=== PATIENT | female | born 1950 | race Caucasian/White ===

== ENCOUNTER 2023-08-16 12:48 | Emergency (ER) | payer OTHER ==
[2023-08-16 13:18] VITALS: BP 149/89; PULSE 97; RESP 18; TEMP 97.9; BMI 26.6
[2023-08-16] MEDS ORDERED: ACETAMINOPHEN 1000 MG/100 ML BAG IVPB ONE (13:40)
[2023-08-16] MEDS ORDERED: ACETAMINOPHEN INJECTION 100 ML IVPB ONE (13:44)
[2023-08-16 14:30] LABS: BASO % 1.1 % (0-2.0); EOS % 3.5 % (0-4.5); HEMATOCRIT 41.2 % (32.4-45.2); HEMOGLOBIN 13.2 GM/dL (10.7-15.3); LYMPH % 39.2 % (8-40); MCH 30.3 pg (25.7-33.7); MCHC 31.9 g/dl (32.0-36.0); MEAN PLT VOLUME 8.3 fl (7.5-11.1); MONO % 6.8 % (3.8-10.2); NEUT % 49.4 % (42.8-82.8); PLATELET COUNT 353 10^3/uL (134-434); RBC 4.34 M/mm3 (3.60-5.2); RDW 13.6 % (11.6-15.6); WHITE BLOOD COUNT 8.2 K/mm3 (4.0-10.0)
[2023-08-16 14:48] LABS: POTASSIUM 4.6 mmol/L (3.5-5.1)
[2023-08-16 14:50] LABS: BLOOD UREA NITROGEN 23.2 mg/dL (7-18); CALCIUM 9.6 mg/dL (8.5-10.1)
[2023-08-16 14:51] LABS: ALBUMIN 3.5 g/dl (3.4-5.0)
[2023-08-16] MEDS ORDERED: SODIUM CHLORIDE 0.9% 500 ML INFUS.BAG IV ONE (14:53)
[2023-08-16 14:54] LABS: CREATININE 1.1 mg/dL (0.55-1.3)
[2023-08-16 14:55] LABS: BILIRUBIN,TOTAL 0.4 mg/dL (0.2-1); TOT PROT 7.3 g/dl (6.4-8.2)
[2023-08-16 15:04] LABS: URINE APPEARANCE CLEAR; URINE BILIRUBIN NEGATIVE (NEGATIVE); URINE COLOR YELLOW; URINE GLUCOSE (UA) NEGATIVE (NEGATIVE); URINE KETONE NEGATIVE (NEGATIVE); URINE LEUK ESTERASE NEGATIVE (NEGATIVE); URINE NITRITE NEGATIVE (NEGATIVE); URINE PROTEIN NEGATIVE (NEGATIVE)
== END 2023-08-16 16:43 | disposition home or self-care (01) ==
LOC: JER 12:48
PROC: 3E033NZ Introduction of Analgesics, Hypnotics, Sedatives into Peripheral Vein, Percutaneous Approach (ICD-10-PCS; principal; 2023-08-16)
DX: R10.31 Right lower quadrant pain (principal); K59.09 Other constipation
CPT/HCPCS: 36415; 74177-TC; 80053; 81003; 83690; 85025; 87086; 87186; 96374; 99285-25; Q9967